=== PATIENT | male | born 1955 | race Caucasian/White ===

== ENCOUNTER → 2016-07-09 | Outpatient (CLI) | payer BC ==
[~2016-07-09] MED LIST: AMIO200T7 PO; ASPI81TA2 PO; ATOR20TA59 PO; CARV12.5 PO; CLOP75TA PO; LISI2.5T2 PO; MULT-1243 PO; RANI150T12 PO; RIVA20TA PO
--- NOTE | 2016-07-09 11:04 | DI ---
INDICATION: ITS.REASON: R06.02 SHORTNESS OF BREATH PROCEDURE: CHEST 2-VIEWS UPRIGHT (PA \T\ LAT) Encounter: Initial COMPARISON: November 16, 2014 FINDINGS: The lungs are clear without evidence of focal abnormal airspace opacity. There is no pleural effusion or pneumothorax. The heart size, mediastinal contours and pulmonary vascularity are within normal limits. IMPRESSION: No acute cardiopulmonary disease. .
== END ==
LOC: IMA 10:08
PROVIDERS: ATTEND Internal Medicine Cardiovascular Disease
DX: R06.02 Shortness of breath (principal)

== ENCOUNTER 2017-07-18 18:49 | Inpatient (IN) ==
[2017-07-17 16:00] VITALS: BMI 37.3
[2017-07-17] MEDS: DiltiaZEM Drip 125 MG in NS 125 ML IV SCH (18:30)
[2017-07-17] MEDS: CARVEDILOL 12.5 MG TABLET PO SCH (20:48)
[2017-07-17] MEDS: ATORVASTATIN 20 MG TABLET PO SCH (20:49)
[2017-07-17] MEDS: TICAGRELOR 90 MG TABLET PO SCH (20:49)
[2017-07-17] MEDS: ENOXAPARIN 150 MG/ML INJECTION SQ SCH (20:50)
[2017-07-18] MEDS: MULTI-VIT + MINERAL (Opti-gen) TABLET PO SCH (09:06)
[2017-07-18] MEDS: CARVEDILOL 12.5 MG TABLET PO SCH ×2 (09:07→18:08)
[2017-07-18] MEDS: LISINOPRIL 10 MG TABLET PO SCH (09:07)
[2017-07-18] MEDS: PANTOPRAZOLE 40 MG TABLET PO SCH (09:07)
[2017-07-18] MEDS: TICAGRELOR 90 MG TABLET PO SCH ×2 (09:08→22:10)
[2017-07-18] MEDS: ENOXAPARIN 150 MG/ML INJECTION SQ SCH (09:08)
[2017-07-18] MEDS: DiltiaZEM Drip 125 MG in NS 125 ML IV SCH (09:41)
--- NOTE | 2017-07-18 14:18 | Transesophageal Echocardiogram ---
TRANSESOPHAGEAL ECHOCARDIOGRAM AND CARDIOVERSION DATE OF PROCEDURE July 18, 2017 INDICATIONS The patient is a 61-year-old gentleman who was admitted with symptomatic atrial flutter with rapid ventricular rate of unknown duration and was referred for transesophageal echocardiogram prior to cardioversion. INFORMED CONSENT Informed consent was obtained after explaining the procedure and the potential risks to the patient who agreed to proceed with the procedure. PROCEDURE 1. Transesophageal echocardiogram. 2. DC cardioversion. Conscious sedation was performed using Versed and fentanyl. Cetacaine spray was used for pharyngeal anesthesia. Probe was advanced into the esophagus and stomach and images were obtained in multiple planes. Left atrium is dilated. Left ventricle end-diastolic dimension is normal. Left ventricle wall thickness is normal. LV systolic function is mildly reduced with ejection fraction of about 45-50%. Right atrium is normal. Right ventricle is normal. Mitral valve is morphologically normal with mild mitral regurgitation. Aortic valve is a trileaflet structure with no stenosis or insufficiency. Tricuspid valve shows mild tricuspid regurgitation. Pulmonary valve is morphologically normal with no pulmonary insufficiency. There is no pericardial effusion. Agitated saline was injected which showed no evidence of [id number] shunt. Descending thoracic aorta shows mild atherosclerosis. IMPRESSION 1. Left atrial dilation. 2. Mild global hypokinesia with ejection fraction of about 45-50%. 3. Mild mitral regurgitation. 4. Mild tricuspid regurgitation. 5. No intracardiac thrombus or mass with no thrombus in left atrium, left atrial appendage or left ventricle. 6. Mild mitral regurgitation. 7. Mild tricuspid regurgitation. 8. 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 After reviewing the images we decided to proceed with cardioversion. Anterior- posterior Zoll pads were applied. 360 joules of energy was delivered in synchronized manner and patient converted from atrial flutter into sinus rhythm. He tolerated the procedure well with no complications. IMPRESSION 1. Successful DC cardioversion of atrial flutter into sinus rhythm. PLAN Will keep him on anticoagulation and start him on antiarrhythmics to maintain sinus. MTDD
[~2017-07-18 18:49] MED LIST changes: -AMIO200T7 PO; +AMIODARONE 150 MG in NS 100 ML IV ONE; +AMIODARONE 450 MG in NS 250ml 250 ML IV SCH; -ASPI81TA2 PO; +ASPIRIN 325 MG TABLET PO SCH; -ATOR20TA59 PO; -CARV12.5 PO; +CARVEDILOL 12.5 MG TABLET PO SCH; +CETIRIZINE 10 MG TABLET PO PRN; -CLOP75TA PO; +DiltiaZEM 25 MG/5 ML INJECTION IVP ONE; +FentaNYL 100 MCG/2 ML INJECTION IVP ONE; -LISI2.5T2 PO; +MIDAZOLAM 2mg/2ml INJECTION IVP ONE; -MULT-1243 PO; -RANI150T12 PO; -RIVA20TA PO; +RIVAROXABAN 20 MG TABLET PO SCH; +SALINE FLUSH 10ml SYRINGE IV ONE; +SALINE FLUSH 10ml SYRINGE ONE
[2017-07-18] MEDS ORDERED: AMIODARONE 900 MG in NS 500ml 500 ML IV SCH (19:18)
[2017-07-18] MEDS: ATORVASTATIN 20 MG TABLET PO SCH (22:11)
[2017-07-19] MEDS: MULTI-VIT + MINERAL (Opti-gen) TABLET PO SCH (09:11)
[2017-07-19] MEDS: LISINOPRIL 10 MG TABLET PO SCH (09:12)
[2017-07-19] MEDS: TICAGRELOR 90 MG TABLET PO SCH (09:12)
[2017-07-19] MEDS: PANTOPRAZOLE 40 MG TABLET PO SCH (09:12)
[2017-07-19] MEDS: CARVEDILOL 12.5 MG TABLET PO SCH (09:31)
[2017-07-19 11:11] VITALS: RESP 16
--- NOTE | 2017-07-19 14:53 | Discharge Summary ---
<Dionne Philip - Last Filed: 07/19/17 15:09> Discharge Information Date of admission: 07/19/17 08:16 Anticipated date of discharge: 07/19/17 Attending Physician: Roland Owen MD Primary care physician: Jacqueline Lozoya APRN Atrial fibrillation with RVR - Procedures Procedures: Date of Exam: 07/18/17 Type of Exam(s): US emilee w/ doppler TRANSESOPHAGEAL ECHOCARDIOGRAM AND CARDIOVERSION DATE OF PROCEDURE July 18, 2017 INDICATIONS The patient is a 61-year-old gentleman who was admitted with symptomatic atrial flutter with rapid ventricular rate of unknown duration and was referred for transesophageal echocardiogram prior to cardioversion. INFORMED CONSENT Informed consent was obtained after explaining the procedure and the potential risks to the patient who agreed to proceed with the procedure. PROCEDURE 1. Transesophageal echocardiogram. 2. DC cardioversion. Conscious sedation was performed using Versed and fentanyl. Cetacaine spray was used for pharyngeal anesthesia. Probe was advanced into the esophagus and stomach and images were obtained in multiple planes. Left atrium is dilated. Left ventricle end-diastolic dimension is normal. Left ventricle wall thickness is normal. LV systolic function is mildly reduced with ejection fraction of about 45-50%. Right atrium is normal. Right ventricle is normal. Mitral valve is morphologically normal with mild mitral regurgitation. Aortic valve is a trileaflet structure with no stenosis or insufficiency. Tricuspid valve shows mild tricuspid regurgitation. Pulmonary valve is morphologically normal with no pulmonary insufficiency. There is no pericardial effusion. Agitated saline was injected which showed no evidence of [id number] shunt. Descending thoracic aorta shows mild atherosclerosis. IMPRESSION 1. Left atrial dilation. 2. Mild global hypokinesia with ejection fraction of about 45-50%. 3. Mild mitral regurgitation. 4. Mild tricuspid regurgitation. 5. No intracardiac thrombus or mass with no thrombus in left atrium, left atrial appendage or left ventricle. 6. Mild mitral regurgitation. 7. Mild tricuspid regurgitation. 8. 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 After reviewing the images we decided to proceed with cardioversion. Anterior- posterior Zoll pads were applied. 360 joules of energy was delivered in synchronized manner and patient converted from atrial flutter into sinus rhythm. He tolerated the procedure well with no complications. IMPRESSION 1. Successful DC cardioversion of atrial flutter into sinus rhythm. PLAN Will keep him on anticoagulation and start him on antiarrhythmics to maintain sinus. - Laboratory Labs: 07/18/17 04:10 07/18/17 04:10 History of Present Illness HPI: Garry is a 61 year old male who is known to Dr. Owen with a history of PAF. He was seen in the clinic on and found to be in AFib with RVR. Yesterday he underwent EMILEE with DCCV, started on Amiodarone for AAT and Xarelto for stroke prevention. 07/19/17 15:12 Hospital Course This is a general summary of the patient's hospital course. For more details refer to the complete medical record. Hospital course: Yesterday he underwent EMILEE with DCCV, started on Amiodarone for AAT and Xarelto for stroke prevention. 07/19/17 15:12 Time spent with patient: 25 - 35 minutes Exam Vital signs: Temperature 96.5 F L 07/19/17 11:10 Pulse Rate 66 07/19/17 11:10 Respiratory Rate 16 07/19/17 11:10 Blood Pressure 111/69 07/19/17 11:10 Pulse Oximetry 95 07/19/17 11:10 - Constitutional no acute distress, well developed, cooperative - Routine HEENT Exam Head: Present: normocephalic ENT: Present: mucous membranes moist - Routine Neck Exam Absent: JVD, carotid bruit - Routine Chest/Breast/Axilla Exam Chest wall: Absent: tenderness - Routine Respiratory Exam Present: CTA bilaterally. Absent: dyspnea - Routine Cardiovascular Exam Present: RRR, no murmur - Routine Abdominal Exam Present: soft, normoactive bowel sounds - Routine Extremities Exam Present: no edema - Routine Skin Exam Present: intact, dry, warm - Routine Neurological Exam Present: alert, oriented X3 - Routine Psychiatric Exam Present: normal affect, normal thought process Results 07/18/17 04:10 07/18/17 04:10 Intake and Output 07/18/17 07/19/17 07/19/17 22:59 06:59 14:59 Intake Total 422.755 / 422.755 550 / 550 480 / 480 Balance 422.755 / 422.755 550 / 550 480 / 480 Intake: IV 222.755 / 222.755 Amiodarone 450 mg In NS 250ml 222.755 / 222.755 250 ml @ 1 MG/MIN 33.33 mls/hr IV .[id number] ON LICENSE OF [facility] Rx#:[id number] Oral 200 / 200 550 / 550 480 / 480 Other: Urine Appearance Clear Urine Color Pale Yellow Size of Bowel Movement Small # Voids 1 1 3 # Bowel Movements 1 Weight 283 lb 4.704 oz Patient Weight 07/20/17 06:59 Weight 283 lb 4.704 oz Discharge Plan - Med Rec/Dispo Referrals/Follow Up: Roland Owen MD [Physician] - 2 Weeks Truv Instructions: Amiodarone (By mouth) (Cordarone, Pacerone), A-fib ( Atrial Fibrillation) (DC) Prescriptions: New Amiodarone [Pacerone] 200 mg PO DAILY #30 tab Rivaroxaban [Xarelto] 20 mg PO WS #30 tab Continue Multivit-Min/FA/Lycopen/Lutein [Centrum Silver Tablet] 1 tab PO DAILY #0 Atorvastatin Calcium 1 tab PO HS #0 tab Carvedilol [Coreg] 12.5 mg PO BIDWM #60 tab Cetirizine [Zyrtec] 1 tab PO PRN PRN PRN Reason: Allergic Reaction Lisinopril [Prinivil] 2 tab PO DAILY Pantoprazole Tab [Protonix Tab] 1 tab PO DAILY ticagrelor 90 mg tablet 90 mg PO BID Discontinued aspirin 325 mg tablet 325 mg PO DAILY - Disposition 01 Discharged Home, Self-Care - Dismissal Complete Discharge Instructions are:: Complete <Roland Owen - Last Filed: 07/24/17 15:24> Discharge Information Date of admission: 07/19/17 08:16 Attending Physician: Roland Owen MD Primary care physician: Jacqueline Lozoya APRN - Laboratory Labs: 07/18/17 04:10 07/18/17 04:10 Hospital Course This is a general summary of the patient's hospital course. For more details refer to the complete medical record. Exam Vital signs: Temperature 96.1 F L 07/19/17 15:02 Pulse Rate 59 L 07/19/17 15:02 Respiratory Rate 16 07/19/17 15:02 Blood Pressure 94/63 07/19/17 15:02 Pulse Oximetry 94 07/19/17 15:02 Results 07/18/17 04:10 07/18/17 04:10 Attestation Narriative - Attestation Attestation Narrative: 07/24/17 15:24 Recommendation After examining the patient I agree with the above assessment. I am involved in the formulation of the patient's plan of care.
[2017-07-19 15:04] VITALS: BP 94/63; PULSE 59; TEMP 96.1; O2SAT 94
[2017-07-20] MEDS ORDERED: AMIODARONE 200 MG TABLET PO SCH (09:00)
== END 2017-07-19 15:32 | disposition home or self-care (01) | DRG 310 ==
LOC: CCU → MED 18:49
PROVIDERS: ADMIT Internal Medicine Cardiovascular Disease; ATTEND Internal Medicine Cardiovascular Disease